=== PATIENT | male | born 1985 | race Caucasian/White ===

== ENCOUNTER 2021-04-27 09:00 | Outpatient (CLI) | payer BC ==
[2021-04-27 20:44] LABS: SARS-CoV-2 PCR by NAA Not Detected (NotDetected)
== END 2021-04-27 09:01 | disposition home or self-care (01) ==
LOC: CSHLAB 09:00
PROVIDERS: ATTEND Internal Medicine
DX: Z20.822 Contact with and (suspected) exposure to COVID-19 (principal)
CPT/HCPCS: U0003; U0005

== ENCOUNTER 2021-05-01 08:57 | Outpatient (CLI) | payer BC | END 2021-05-01 08:58 | disposition home or self-care (01) | LOC: CSHCP 08:57 | PROVIDERS: ATTEND Internal Medicine | DX: J45.40 Moderate persistent asthma, uncomplicated (principal) | CPT/HCPCS: 94060; 94726; 94729; 94760 ==